=== PATIENT | female | born 1965 | race Caucasian/White ===

== ENCOUNTER 2019-03-22 12:05 | Emergency (ER) | payer MEDICAID ==
[~2019-03-22] VITALS: Ht 162.6 cm; Wt 109.0 kg
[~2019-03-22 12:05] MED LIST: HYDR-4383 PO; ONDA4TAB6 PO
[2019-03-22 12:28] VITALS: BP 185/68
== END 2019-03-22 15:35 | disposition home or self-care (01) ==
LOC: ER 12:06
DX: L98.9 Disorder of the skin and subcutaneous tissue, unspecified (principal); I10 Essential (primary) hypertension; G89.4 Chronic pain syndrome; G47.30 Sleep apnea, unspecified
CPT/HCPCS: 99281; 99283